=== PATIENT | male | born 1945 | race Caucasian/White ===

== ENCOUNTER 2020-07-01 11:18 | Inpatient (IN) ==
[2020-07-01] MEDS ORDERED: NS 0.9% 1000 ml BAG 1,000 ML IV ONE (11:31)
[2020-07-01] MEDS ORDERED: Adenosine 3 MG/ML 2 ml VIAL (6 mg) IV PUSH ONE ×2 (11:34)
[2020-07-01 11:47] LABS: ABS Basophils 0.1 10^3/ul (0-0.2); ABS Eosinophils 0.3 10^3/ul (0-0.6); ABS Lymphocytes 1.2 10^3/ul (1.0-4.8); ABS Monocytes 0.8 10^3/ul (0-0.8); ABS Neutrophils 7.7 10^3/ul (1.5-7.7); Eosinophil % 2.9 %; Hematocrit 46 % (42-52); Hemoglobin 15.6 g/dL (14.0-18.0); Lymphocyte % 12.3 %; Mean Corpuscular HGB Conc 34 g/dL (31-36); Mean Corpuscular Hemoglobin 31 pg (27-31); Mean Corpuscular Volume 91 fL (80-94); Nucleated Red Blood Cells % 0.1; Platelet Count 336 10^3/uL (150-450); Red Blood Count 5.05 10^6 /uL (4.18-5.48); Red Cell Distribution Width 14 % (10-15); White Blood Count 10.1 10^3/uL (3.5-10.8)
[2020-07-01 12:06] LABS: Albumin 3.9 g/dL (3.2-5.2); Calcium 9.8 mg/dL (8.6-10.3); Magnesium 1.7 mg/dL (1.9-2.7); Potassium 3.7 mmol/L (3.5-5.0); Total Bilirubin 0.5 mg/dL (0.2-1.0)
[2020-07-01 12:12] LABS: Albumin/Globulin Ratio 1.3 (1-3); BUN/Creatinine Ratio 16.9 (8-20); EGFR African American 109.3 (>60); EGFR Non-African American 90.3 (>60); Total Protein 6.9 g/dL (6.4-8.9)
[2020-07-01] MEDS ORDERED: Iodixanol (CONTRAST) 320 MG/ML 100 ML SDV IV ONE (12:21)
[2020-07-01] MEDS ORDERED: Magnesium Sulfate 2 gm BAG 2 GM/50 ML BAG IVPB ONE (13:02)
[2020-07-01] MEDS: Diltiazem IV push/loading dose 5 MG/ML 5 ML vial (25 mg) IV SLOW PU ONE ×2 (13:25→16:00)
[2020-07-01 13:56] LABS: TSH Ultra Thyroid Stim Horm 3.12 mcIU/mL (0.34-5.60)
[2020-07-01 13:57] LABS: Free T4 1.03 ng/dL (0.61-1.12)
[2020-07-01] MEDS ORDERED: Ondansetron 4 mg VIAL 2 MG/ML 2 ml VIAL IV PRN (14:16)
[2020-07-01] MEDS ORDERED: Diltiazem IV push/loading dose 5 MG/ML 5 ML vial (25 mg) ONE (15:45)
[2020-07-01] MEDS ORDERED: Diltiazem IV push/loading dose 5 MG/ML 5 ML vial (25 mg) IV SLOW PU ONE (16:03)
[2020-07-01 16:11] LABS: Body Fluid Source Pleural Fluid
[2020-07-01 20:51] LABS: Body Fluid Mono 2 %; Body Fluid Other Cells 12
[2020-07-02 06:26] LABS: ABS Basophils 0.1 10^3/ul (0-0.2); ABS Eosinophils 0.2 10^3/ul (0-0.6); ABS Lymphocytes 0.9 10^3/ul (1.0-4.8); ABS Monocytes 0.8 10^3/ul (0-0.8); ABS Neutrophils 10.1 10^3/ul (1.5-7.7); Eosinophil % 1.4 %; Hematocrit 44 % (42-52); Lymphocyte % 7.7 %; Mean Corpuscular HGB Conc 34 g/dL (31-36); Mean Corpuscular Hemoglobin 31 pg (27-31); Mean Corpuscular Volume 91 fL (80-94); Mean Platelet Volume 8.6 fL (7.4-10.4); Platelet Count 337 10^3/uL (150-450); Red Blood Count 4.86 10^6 /uL (4.18-5.48); Red Cell Distribution Width 13 % (10-15); White Blood Count 12.1 10^3/uL (3.5-10.8)
[2020-07-02 06:44] LABS: Calcium 9.8 mg/dL (8.6-10.3); Potassium 3.5 mmol/L (3.5-5.0)
[2020-07-02 06:49] LABS: BUN/Creatinine Ratio 14.9 (8-20); EGFR African American 139.9 (>60); EGFR Non-African American 115.6 (>60)
[2020-07-02] MEDS ORDERED: Enoxaparin 40 MG/0.4 ML SYR SUBCUT SCH (20:00)
[2020-07-03 05:30] LABS: BUN/Creatinine Ratio 23.9 (8-20); Calcium 9.7 mg/dL (8.6-10.3); EGFR African American 139.9 (>60); EGFR Non-African American 115.6 (>60); Potassium 3.5 mmol/L (3.5-5.0)
[2020-07-03 07:28] LABS: ABS Basophils 0.1 10^3/ul (0-0.2); ABS Eosinophils 0.4 10^3/ul (0-0.6); ABS Lymphocytes 1.1 10^3/ul (1.0-4.8); ABS Neutrophils 8.4 10^3/ul (1.5-7.7); Eosinophil % 3.9 %; Hematocrit 41 % (42-52); Hemoglobin 13.9 g/dL (14.0-18.0); Lymphocyte % 9.8 %; Mean Corpuscular HGB Conc 34 g/dL (31-36); Mean Corpuscular Hemoglobin 31 pg (27-31); Mean Corpuscular Volume 91 fL (80-94); Mean Platelet Volume 7.9 fL (7.4-10.4); Platelet Count 296 10^3/uL (150-450); Red Blood Count 4.47 10^6 /uL (4.18-5.48); Red Cell Distribution Width 14 % (10-15)
[2020-07-03 10:41] LABS: Body Fluid Source Pleural Fluid
[2020-07-03 12:47] LABS: Body Fluid Mono 12 %
[2020-07-03] MEDS ORDERED: Enoxaparin 100 MG/ML SYR SUBCUT SCH (14:00)
[2020-07-04 05:39] LABS: ABS Basophils 0.1 10^3/ul (0-0.2); ABS Eosinophils 0.5 10^3/ul (0-0.6); ABS Lymphocytes 0.9 10^3/ul (1.0-4.8); ABS Neutrophils 7.5 10^3/ul (1.5-7.7); Eosinophil % 5.1 %; Hematocrit 41 % (42-52); Hemoglobin 13.9 g/dL (14.0-18.0); Lymphocyte % 8.9 %; Mean Corpuscular HGB Conc 34 g/dL (31-36); Mean Corpuscular Hemoglobin 31 pg (27-31); Mean Corpuscular Volume 91 fL (80-94); Mean Platelet Volume 8.1 fL (7.4-10.4); Nucleated Red Blood Cells % 0.1; Platelet Count 310 10^3/uL (150-450); Red Blood Count 4.47 10^6 /uL (4.18-5.48); Red Cell Distribution Width 14 % (10-15); White Blood Count 9.9 10^3/uL (3.5-10.8)
[2020-07-04 05:57] LABS: BUN/Creatinine Ratio 24.3 (8-20); Calcium 9.7 mg/dL (8.6-10.3); EGFR Non-African American 109.9 (>60); Potassium 3.7 mmol/L (3.5-5.0)
[2020-07-04 14:32] LABS: Lactate Dehydrogenase, BF 300 U/L
[2020-07-04 14:33] LABS: Fluid Type, Protein, Total PLEURAL
[2020-07-05 06:25] LABS: Hematocrit 40 % (42-52); Hemoglobin 13.6 g/dL (14.0-18.0); Mean Corpuscular HGB Conc 34 g/dL (31-36); Mean Corpuscular Hemoglobin 31 pg (27-31); Mean Corpuscular Volume 92 fL (80-94); Mean Platelet Volume 8.2 fL (7.4-10.4); Platelet Count 311 10^3/uL (150-450); Red Blood Count 4.39 10^6 /uL (4.18-5.48); Red Cell Distribution Width 14 % (10-15); White Blood Count 10.1 10^3/uL (3.5-10.8)
[2020-07-05 06:31] LABS: INR 1.17 (0.82-1.09)
[2020-07-05 06:44] LABS: BUN/Creatinine Ratio 23.3 (8-20); Calcium 9.7 mg/dL (8.6-10.3); EGFR African American 126.7 (>60); EGFR Non-African American 104.7 (>60)
[2020-07-05] MEDS ORDERED: fentaNYL 100 mcg/2 ml 50 MCG/ML VIAL ONE (11:09)
[2020-07-06 08:19] LABS: ABS Basophils 0.1 10^3/ul (0-0.2); ABS Eosinophils 0.4 10^3/ul (0-0.6); ABS Lymphocytes 0.8 10^3/ul (1.0-4.8); ABS Monocytes 0.8 10^3/ul (0-0.8); ABS Neutrophils 6.7 10^3/ul (1.5-7.7); Eosinophil % 4.7 %; Hematocrit 40 % (42-52); Hemoglobin 13.4 g/dL (14.0-18.0); Lymphocyte % 9.4 %; Mean Corpuscular HGB Conc 34 g/dL (31-36); Mean Corpuscular Hemoglobin 31 pg (27-31); Mean Corpuscular Volume 92 fL (80-94); Mean Platelet Volume 7.9 fL (7.4-10.4); Platelet Count 309 10^3/uL (150-450); Red Blood Count 4.34 10^6 /uL (4.18-5.48); Red Cell Distribution Width 14 % (10-15); White Blood Count 8.8 10^3/uL (3.5-10.8)
[2020-07-06 08:28] LABS: BUN/Creatinine Ratio 20.6 (8-20); Calcium 9.9 mg/dL (8.6-10.3); EGFR African American 137.6 (>60); EGFR Non-African American 113.7 (>60); Potassium 4.2 mmol/L (3.5-5.0)
[2020-07-07 05:10] LABS: ABS Basophils 0.1 10^3/ul (0-0.2); ABS Eosinophils 0.5 10^3/ul (0-0.6); ABS Neutrophils 6.5 10^3/ul (1.5-7.7); Eosinophil % 5.1 %; Hematocrit 38 % (42-52); Hemoglobin 12.9 g/dL (14.0-18.0); Lymphocyte % 10.8 %; Mean Corpuscular HGB Conc 34 g/dL (31-36); Mean Corpuscular Hemoglobin 31 pg (27-31); Mean Corpuscular Volume 92 fL (80-94); Mean Platelet Volume 8.3 fL (7.4-10.4); Platelet Count 298 10^3/uL (150-450); Red Blood Count 4.15 10^6 /uL (4.18-5.48); Red Cell Distribution Width 14 % (10-15)
[2020-07-07 05:29] LABS: BUN/Creatinine Ratio 22.9 (8-20); Calcium 9.6 mg/dL (8.6-10.3); EGFR Non-African American 109.9 (>60); Potassium 3.6 mmol/L (3.5-5.0)
[2020-07-07] MEDS ORDERED: Senna TAB 8.6 mg TAB PO PRN (10:24)
[2020-07-07] MEDS ORDERED: Magnesium Hydroxide LIQ 30 ML UDC PO PRN (10:24)
[2020-07-07] MEDS ORDERED: Magnesium Hydroxide LIQ 30 ML UDC PO SCH (11:00)
[2020-07-07 18:01] VITALS: BP 141/81
[2020-07-08] MEDS ORDERED: Polyethylene Glycol 3350 17 GM PACKET PO SCH (09:00)
== END 2020-07-07 17:50 | disposition home health service (06) | DRG 187 ==
LOC: MEDTELE 11:18 → ED 11:18 → MEDTELE 07-05 05:41
PROVIDERS: ADMIT Internal Medicine; ATTEND Internal Medicine

== ENCOUNTER 2021-04-03 11:22 | Inpatient (IN) ==
[2021-04-03 12:25] LABS: Hematocrit 30 % (42-52); Hemoglobin 9.9 g/dL (14.0-18.0); Mean Corpuscular HGB Conc 33 g/dL (31-36); Mean Corpuscular Hemoglobin 32 pg (27-31); Mean Corpuscular Volume 96 fL (80-94); Red Blood Count 3.12 10^6 /uL (4.18-5.48); Red Cell Distribution Width 20 % (10-15); White Blood Count 10.7 10^3/uL (3.5-10.8)
[2021-04-03 12:39] LABS: ALT 13 U/L (7-52); AST 12 U/L (13-39); Albumin 3.5 g/dL (3.2-5.2); Albumin/Globulin Ratio 1.2 (1-3); Alkaline Phosphatase 66 U/L (35-149); Anion Gap 7 mmol/L (2-11); Blood Urea Nitrogen 9 mg/dL (6-24); CO2 Carbon Dioxide 29 mmol/L (22-32); Calcium 10.4 mg/dL (8.6-10.3); Chloride 106 mmol/L (101-111); Globulin 2.9 g/dL (2-4); Glucose 109 mg/dL (70-100); Potassium 3.6 mmol/L (3.5-5.0); Sodium 142 mmol/L (135-145); Total Protein 6.4 g/dL (6.4-8.9)
[2021-04-03 12:48] LABS: Troponin I 0.04 ng/mL (<0.03)
[2021-04-03 12:52] LABS: INR 1.76 (0.86-1.15); Magnesium 1.8 mg/dL (1.9-2.7)
[2021-04-03 13:00] LABS: ABS Lymphocytes 0.5 10^3/ul (1.0-4.8); ABS Monocytes 0.7 10^3/ul (0-0.8); ABS Neutrophils 9.5 10^3/ul (1.5-7.7); Lymphocyte % 4.3 %; Mean Platelet Volume 7.5 fL (7.4-10.4); Platelet Count 83 10^3/uL (150-450)
[2021-04-03] MEDS ORDERED: Magnesium Sulfate IV 1GM/100ML 1 GM/100 ML BAG IV ONE (13:16)
[2021-04-03] MEDS ORDERED: Etomidate 20 mg/10 ml 2 MG/ML 10 ml VIAL IV ONE (13:19)
[2021-04-03 13:41] LABS: TSH Ultra Thyroid Stim Horm 2.36 mcIU/mL (0.34-5.60)
[2021-04-03 13:43] LABS: Free T4 1.07 ng/dL (0.61-1.12)
[2021-04-03] MEDS ORDERED: Iohexol 300 (CONTRAST) 10 ML SDV IV ONE (13:55)
[2021-04-03 16:30] LABS: Troponin I 0.03 ng/mL (<0.03)
[2021-04-03 20:40] LABS: Rapid COVID-19 Molecular Undetected (Undetected)
[2021-04-03] MEDS ORDERED: Al Hydrox/Mg Hydrox/Simet LIQ 30 ML UDC PO PRN (21:57)
[2021-04-03] MEDS ORDERED: Ondansetron 4 mg VIAL 2 MG/ML 2 ml VIAL IV PRN (21:57)
[2021-04-03] MEDS ORDERED: Furosemide 40 mg/4 ml IV VIAL IV ONE (22:01)
[2021-04-04 05:36] LABS: Calcium 9.4 mg/dL (8.6-10.3); Potassium 3.5 mmol/L (3.5-5.0)
[2021-04-04 05:51] LABS: ABS Lymphocytes 0.7 10^3/ul (1.0-4.8); ABS Monocytes 0.8 10^3/ul (0-0.8); Eosinophil % 0.3 %; Hematocrit 26 % (42-52); Hemoglobin 8.6 g/dL (14.0-18.0); Lymphocyte % 8.6 %; Mean Corpuscular HGB Conc 34 g/dL (31-36); Mean Corpuscular Hemoglobin 32 pg (27-31); Mean Corpuscular Volume 95 fL (80-94); Platelet Count 78 10^3/uL (150-450); Red Blood Count 2.68 10^6 /uL (4.18-5.48); Red Cell Distribution Width 20 % (10-15); White Blood Count 8.5 10^3/uL (3.5-10.8)
[2021-04-04] MEDS ORDERED: PILOCARPINE 5 MG PO PRN (09:00)
[2021-04-04] MEDS: Insulin GLARGINE 100 un/ml 10 ml VIAL SUBCUT SCH (09:01)
[2021-04-04] MEDS ORDERED: Furosemide 40 mg/4 ml IV VIAL IV SLOW PU ONE (11:26)
[2021-04-04 12:33] LABS: Calcium (PTH Intact) 9.5 mg/dL (8.6-10.3)
[2021-04-04] MEDS ORDERED: Potassium Chlor 20 meq TAB.ER PO ONE (13:09)
[2021-04-05 05:28] LABS: ABS Lymphocytes 0.7 10^3/ul (1.0-4.8); ABS Monocytes 0.7 10^3/ul (0-0.8); ABS Neutrophils 5.5 10^3/ul (1.5-7.7); Eosinophil % 0.5 %; Hematocrit 26 % (42-52); Hemoglobin 8.8 g/dL (14.0-18.0); Lymphocyte % 10.6 %; Mean Corpuscular HGB Conc 34 g/dL (31-36); Mean Corpuscular Hemoglobin 32 pg (27-31); Mean Corpuscular Volume 96 fL (80-94); Mean Platelet Volume 8.1 fL (7.4-10.4); Nucleated Red Blood Cells % 0.1; Platelet Count 92 10^3/uL (150-450); Red Blood Count 2.72 10^6 /uL (4.18-5.48); Red Cell Distribution Width 21 % (10-15)
[2021-04-05 05:41] LABS: Calcium 9.7 mg/dL (8.6-10.3); Magnesium 1.9 mg/dL (1.9-2.7); Potassium 3.3 mmol/L (3.5-5.0)
[2021-04-05] MEDS ORDERED: Potassium Chlor 20 meq TAB.ER PO ONE (07:51)
[2021-04-05] MEDS ORDERED: Psyllium PAK PO SCH (09:00)
[2021-04-05] MEDS: Insulin GLARGINE 100 un/ml 10 ml VIAL SUBCUT SCH (09:49)
[2021-04-05 11:19] VITALS: BP 124/81
== END 2021-04-05 16:45 | disposition home or self-care (01) | DRG 308 ==
LOC: MED 11:22 → ED 11:22 → SUATTDRO 21:58 → MED 04-04 04:37
PROVIDERS: ADMIT Hospitalist; ATTEND Internal Medicine